=== PATIENT | male | born 1970 | race Caucasian/White ===

== ENCOUNTER 2017-08-27 10:30 | Emergency (ER) | payer BC ==
[2017-08-27 10:42] VITALS: BP 135/78
--- NOTE | 2017-08-27 11:27 | RAD ---
HISTORY: swelling, pain injury COMPARISONS: None VIEWS: 4, Frontal, lateral, and oblique views of the left elbow FINDINGS: BONE DENSITY: Normal. BONES: There is no displaced fracture. JOINTS: There is no arthropathy. ALIGNMENT: There is no dislocation. SOFT TISSUES: There is soft tissue swelling along the olecranon. OTHER FINDINGS: None. IMPRESSION: SOFT TISSUE SWELLING SUGGESTIVE OF OLECRANON BURSITIS. NO ACUTE OSSEOUS INJURY. IF SYMPTOMS PERSIST, RECOMMEND REPEAT IMAGING.
--- NOTE | 2017-08-27 11:49 | UC ---
Elbow Pain - HPI Summary HPI Summary: unsure of original injury but has a scab on left elbow with swelling---patient has fulll rom---no streaking and elbow is warm to touch - History of Current Complaint Hx Obtained From: Patient Onset/Duration: Days Pain Intensity: 0 Pain Scale Used: 0-10 Numeric Location Of Pain: Is Discrete @ - left elbow Associated Signs And Symptoms: Positive: Redness <Mona Figueroa - Last Filed: 08/27/17 12:27> <Malik Rodriguez - Last Filed: 08/27/17 13:05> - History of Current Complaint Chief Complaint: UCUpperExtremity Stated Complaint: ELBOW PAIN Time Seen by Provider: 08/27/17 10:55 - Allergies/Home Medications Allergies/Adverse Reactions: Allergies Allergy/AdvReac Type Severity Reaction Status Date / Time sunflower seed Allergy Hives Verified 08/27/17 10:43 PMH/Surg Hx/FS Hx/Imm Hx Previously Healthy: Yes - Surgical History Surgical History: None - Family History Known Family History: Positive: None - Social History Occupation: Employed Full-time Lives: With Family Alcohol Use: Weekly Substance Use Type: None Smoking Status (MU): Former Smoker <Mona Figueroa - Last Filed: 08/27/17 12:27> Review of Systems Constitutional: Negative Skin: Other - scabs without drainage left elbow Eyes: Negative ENT: Negative Respiratory: Negative Cardiovascular: Negative Gastrointestinal: Negative Genitourinary: Negative Motor: Negative Neurovascular: Negative Musculoskeletal: Negative, Other: - olecranon bursal swelling Neurological: Negative Psychological: Negative Is Patient Immunocompromised?: No All Other Systems Reviewed And Are Negative: Yes <Mona Figueroa - Last Filed: 08/27/17 12:27> Physical Exam Triage Information Reviewed: Yes Appearance: Well-Appearing, No Pain Distress, Well-Nourished Vital Signs: Initial Vital Signs Temp 98.3 F 08/27/17 10:39 Pulse 71 08/27/17 10:39 Resp 16 08/27/17 10:39 BP 135/78 08/27/17 10:39 Pulse Ox 100 08/27/17 10:39 Vital Signs Reviewed: Yes Eye Exam: Normal Eyes: Positive: Conjunctiva Clear ENT Exam: Normal ENT: Positive: Normal ENT inspection, Hearing grossly normal. Negative: Trismus , Muffled voice, Hoarse voice, Sinus tenderness Dental Exam: Normal Neck exam: Normal Neck: Positive: Supple, Nontender, No Lymphadenopathy Respiratory Exam: Normal Respiratory: Positive: Chest non-tender, Lungs clear, Normal breath sounds, No respiratory distress, No accessory muscle use Cardiovascular Exam: Normal Cardiovascular: Positive: RRR, Pulses Normal, Brisk Capillary Refill Musculoskeletal Exam: Other Musculoskeletal: Positive: Strength Intact, ROM Intact, Edema @ - left elbow Neurological Exam: Normal Neurological: Positive: Alert, Muscle Tone Normal Psychological Exam: Normal Skin Exam: Other Skin: Positive: Other - intact scabs on left elbow with out drainage , some erythema, no streaking <Mona Figueroa - Last Filed: 08/27/17 12:27> Vital Signs: Initial Vital Signs Temp 98.3 F 08/27/17 10:39 Pulse 71 08/27/17 10:39 Resp 16 08/27/17 10:39 BP 135/78 08/27/17 10:39 Pulse Ox 100 08/27/17 10:39 <Malik Rodriguez - Last Filed: 08/27/17 13:05> Elbow Pain Course/Dx - Course Course Of Treatment: kody wrap, warm compresses, naproxen, Bactrim follow with orthopedic MD - Differential Dx/Diagnosis Provider Diagnoses: Left olecrenon bursitis <Mona Figueroa - Last Filed: 08/27/17 12:27> Discharge - Sign-Out/Discharge Documenting (check all that apply): Discharge/Admit/Transfer - Billing Disposition and Condition Condition: STABLE Disposition: Home <Mona Figueroa - Last Filed: 08/27/17 12:27> - Billing Disposition and Condition Condition: STABLE Disposition: Home <Malik Rodriguez - Last Filed: 08/27/17 13:05> - Discharge Plan Condition: Stable Disposition: HOME Prescriptions: Naproxen Sodium [Naproxen Sodium 500 MG TAB] 500 mg PO BID #20 tab Sulfamethox/Trimethoprim DS* [Bactrim DS 800/160 TAB*] 1 tab PO BID #20 tab Patient Education Materials: Cellulitis (ED), Elbow Bursitis (ED), Warm Compress or Soak (ED) Referrals: Quin Flynn MD [Medical Doctor] - If Needed Additional Instructions: Per institutional requirements, I have reviewed the chart, however, I was not consulted specifically or made aware of this patient by the midlevel provider. I did not personally evaluate, interact with , or disposition this patient.
== END 2017-08-27 11:42 | disposition home or self-care (01) ==
LOC: UCEAST 10:30
DX: M70.22 Olecranon bursitis, left elbow (principal); Y93.9 Activity, unspecified; Z87.891 Personal history of nicotine dependence
CPT/HCPCS: 99212; G0463

== ENCOUNTER 2018-02-27 11:07 | Day surgery (SDC) | payer BC ==
--- NOTE | 2018-02-18 03:49 | HP ---
PREOPERATIVE HISTORY AND PHYSICAL: DATE OF ADMISSION/SURGERY: 02/27/18 DATE OF OFFICE VISIT: 02/15/18 ATTENDING SURGEON: Dr. John Chowdhury.* (DICTATED BY GIA WILLS) PROCEDURE: Left arm triceps repair and bursectomy. CHIEF COMPLAINT: Left arm. HISTORY OF PRESENT ILLNESS: Julius is a 47-year-old male, who presents to the clinic for a left triceps injury. He has failed conservative measures and therefore agreed to undergo a left arm triceps repair and bursectomy. PAST MEDICAL HISTORY: Exercise-induced asthma, history of drug addiction, and mitral valve prolapse. PAST SURGICAL HISTORY: Fluid removed from his lung. He denies complications with anesthesia. MEDICATIONS: Acetaminophen as needed. ALLERGIES: No known drug allergies. FAMILY HISTORY: Denies pertinent family history. SOCIAL HISTORY: He lives with his spouse. 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 He is a former smoker, quit 11 years ago. He reports regular alcohol consumption. REVIEW OF SYSTEMS: A 14-point review of systems was reviewed with the patient. Positive for current complaint, otherwise negative. Denies fever, chills, chest pain, shortness of breath, history of bleeding disorder, history of DVT or PE. PHYSICAL EXAMINATION GENERAL: A 47-year-old well-developed, well-nourished male, in no acute distress. VITAL SIGNS: Height 71, weight 215, pulse 80, blood pressure 128/82, respiratory rate 16, temperature 97.4, BMI 30.0. HEENT: Normocephalic, atraumatic. PERRLA. Throat clear. NECK: Supple. PULMONARY: Lungs are clear to auscultation bilaterally. No wheezing, rhonchi, or rales. CARDIO: Regular rate and rhythm. S1, S2. No murmurs, gallops, or rubs. No edema. ABDOMEN: Positive bowel sounds. Soft, nontender. MUSCULOSKELETAL: Left upper extremity: Skin is intact. No warmth or erythema. Tenderness over the triceps insertion particularly laterally. Able to flex and extend his elbow. Symmetric pronation and supination. Pain with resisted triceps extension. Mild bursitis. +2 radial pulse. Sensation intact to light touch distally. DIAGNOSTIC STUDIES: MRI revealed small effusion with increased bone changes and edema in the olecranon and partial tear of the triceps tendon. IMPRESSION: Left arm triceps tear. PLAN: The patient is scheduled to undergo a left arm triceps repair and bursectomy with Dr. Chowdhury on 02/27/18. He will follow up 10 to 14 days postop for followup and suture removal. Percocet will be used for postop pain management. GIA WILLS [id number]/[facility] #: [id number] [facility] HOSPITALAlirio
[~2018-02-27 11:07] MED LIST: Buffered Lidocaine 0.9% SYRIN* 5 ML/SYR SYRINGE INTRADERM ONE; Dexamethasone IV* 4 MG/ML 1 ML (4 MG) IV SLOW PU ONE; Famotidine IV* 10 MG/ML 2 ML (20 mg) IV ONE; Lactated Ringers 1000 ML Bag* 1,000 ML IV SCH
[2018-02-27] MEDS ORDERED: Famotidine IV* 10 MG/ML 2 ML (20 mg) ONE (11:27)
[2018-02-27] MEDS ORDERED: ceFAZolin 2 GM PREMIX in ORs 2 GM/50 ML BAG IVPB ONE (11:28)
[2018-02-27] MEDS ORDERED: Dexamethasone IV* 4 MG/ML 1 ML (4 MG) ONE (11:28)
[2018-02-27] MEDS ORDERED: Succinylcholine* 20 MG/ML 10 ML VIAL ONE (12:19)
[2018-02-27] MEDS ORDERED: fentaNYL* 50 MCG/ML 5 ML VIAL (250 MCG VIAL) ONE (12:19)
[2018-02-27] MEDS ORDERED: Midazolam* 1 MG/ML 5 ML VIAL (5 MG) ONE (12:19)
[2018-02-27] MEDS ORDERED: Propofol* 10 MG/ML 20 ML BTL ONE (12:19)
[2018-02-27] MEDS ORDERED: Lidocaine 2% PF * 5 ML VIAL ONE (12:19)
[2018-02-27] MEDS ORDERED: DiMENhydriNATE IV* 50 MG/ML VIAL IV PUSH PRN (12:24)
[2018-02-27] MEDS ORDERED: oxyCODONE/Acetamin 5/325 MG* TAB PO PRN (12:24)
[2018-02-27] MEDS ORDERED: Naloxone* 0.4 MG/ML 1 ML VIAL IV PRN (12:24)
[2018-02-27] MEDS ORDERED: fentaNYL* 50 MCG/ML 2 ML VIAL (100 MCG VIAL) IV PRN (12:24)
[2018-02-27] MEDS ORDERED: HYDROcodone/ACETAMIN 5-325 MG* 1 TAB PO PRN (12:24)
[2018-02-27] MEDS ORDERED: Ondansetron INJ* 2 MG/ML VIAL ONE (13:40)
[2018-02-27] MEDS ORDERED: Ketorolac INJ* 30 MG/ML 1 ML VIAL ONE (13:42)
[2018-02-27] MEDS ORDERED: Ropivacaine* 2 MG/ML 20 ML VIAL (0.2%) ONE (13:45)
[2018-02-27] MEDS ORDERED: HYDROcodone/ACETAMIN 5-325 MG* 1 TAB ONE (14:31)
[2018-02-27 15:10] VITALS: BP 136/77
--- NOTE | 2018-03-08 07:12 | OP ---
CC: PCP (?) * DATE OF OPERATION: 02/27/18 - [facility] DATE OF : 68 SURGEON: John Chowdhury MD. CAFETERIA HELPER: GIA Pascual.An assistant professor of marine biology was needed for the entirety of the case to help with positioning, retraction, anchor placement, and was utilized throughout the entirety of the case. ANESTHESIA: General. PRE-OP DIAGNOSIS: Left triceps partial tear and bursitis with a small loose body. POST-OP DIAGNOSIS: Left triceps partial tear and bursitis with a small loose body. OPERATIVE PROCEDURE: Left elbow open bursectomy with an open triceps repair. COMPLICATIONS: None. ESTIMATED BLOOD LOSS: Minimal. TOURNIQUET TIME: 0 minutes. IMPLANTS USED: One Q-Fix 2.8 mm and one 3.0 knotless anchor. INDICATIONS: Julius Anderson is a 47-year-old male who has had several-month history of elbow pain. He was diagnosed with first some sort of septic bursitis. It turned out he had no infection, but had in fact a partial tear of his triceps. He also also had a bursitis with a small loose body after an MRI confirmed this. He has failed conservative management including physical therapy , antiinflammatories, ice and heat. He had persistent pain and weakness with extension. Risks and benefits were discussed at length including, but not limited to, bleeding; infection; damage to nerves, vessels, surrounding structures; wound nonhealing; persistent pain; need for further surgery; scarring; stiffness; incomplete relief of symptoms; risks of anesthesia. DESCRIPTION OF PROCEDURE: The patient was greeted in the preoperative area by the attending surgeon. Correct extremity was marked and consent was confirmed. The patient was brought back to the operating suite, where he was placed in supine position on the operating table. He then underwent general anesthesia and endotracheal intubation, after which he was placed in the lateral decubitus position with a beanbag. The left elbow was then prepped and draped in the usual sterile fashion beginning with chlorhexidine soap, scrub, and alcohol wipe and a final prep of ChloraPrep. After appropriate surgical pause indicating site, side, procedure, and administration of antibiotics, a posterior incision was made about the triceps extending over the olecranon. First, the soft tissue was carefully dissected to expose the bursectomy. The bursa was then carefully removed. Small bursal loose body was then removed. Attention was then directed to the triceps. Based on the preoperative MRI templating, there was a tearing of the medial aspect of the triceps, but laterally it was still intact. With care to prevent any damage to the ulnar nerve, attention was directed to the medial triceps. The superficial fibers were still intact and released and demonstrated a near full- thickness tear of the medial aspect of the triceps. The insertion site was then prepared using a rasp and a curette to lock our bony bleeding bed. The soft tissues were carefully mobilized with care to preserve as much as the normal triceps laterally. Once the cuff of tissue was exposed fully and the footprint was then prepared, the Q-Fix guide was then placed and then drilled with care to point away from the joint, Q-Fix was deployed with excellent purchase. Two sutures were then passed through the tendon in a whipstitch fashion to allow for running locking stitch with one stitch to pass through the tendons down and then the second stitch was placed in a horizontal mattress configuration, grabbing some of the medial as well as some of the lateral aspect of the tendon. The sutures were then tied down to help with the arm in full extension to restore as much as appropriate tension. After this was done, the elbow was taken through range of motion. It was found to be appropriate. At this point, a double-row repair was done and the sutures were passed through a 3.0 knotless anchor by [employer]. This was then drilled and placed with excellent purchase. All excess debris was removed. The wounds were then copiously irrigated with sterile saline. Elbow was taken through range of motion. The skin was closed in layers with 2-0 Vicryl and 3- 0 nylon in interrupted fashion. The wound was injected with 0.2% Marcaine plain. Sterile dressings were applied and a posterior splint was placed to about 45 degrees of flexion. He was awoken from anesthesia and returned to the PACU in stable condition. POSTOPERATIVE PLAN: He will be nonweightbearing. He will be in the splint for approximately 10 days. Then, we will transition him into a hinged elbow brace and gradually progress with motion first from 45 to 0 degrees and then gradually increase in flexion. He will be nonweightbearing for about 6 weeks. He will be discharged on pain medication. DVT prophylaxis considered but deferred due to no previous personal or family history. I will see the patient back in about 10 to 14 days. [id number]/[facility] #: [id number] RANJITH
== END 2018-02-27 15:10 | disposition home or self-care (01) ==
LOC: OR 11:07
PROVIDERS: ATTEND Orthopaedic Surgery
DX: S46.312A Strain of muscle, fascia and tendon of triceps, left arm, initial encounter (principal); Z87.891 Personal history of nicotine dependence; J45.990 Exercise induced bronchospasm; I34.1 Nonrheumatic mitral (valve) prolapse; F19.21 Other psychoactive substance dependence, in remission; X58.XXXA Exposure to other specified factors, initial encounter; Y92.9 Unspecified place or not applicable
CPT/HCPCS: C1713; C1776; J0330; J0690; J1100; J1885; J2250; J2405; J2704; J2795; J3010